=== PATIENT | male | born 1980 | race African-American/Black ===

== ENCOUNTER 2017-12-01 21:50 | Inpatient (IN) | payer OTHER ==
--- NOTE | 2017-12-01 21:50 | HP ---
COWS - Scale Resting Pulse: 1= [place] 81-100 Sweatin= Chills/Flushing Restless Observation: 5= Unable to Sit Still Pupil Size: 1= Pupils >than Normal Bone or Joint Aches: 4=Acute Joint/Muscle Pain Runny Nose/ Eye Tearin= Nasal Congestion GI Upset > 30mins: 1= Stomach Cramp Tremor Observation: 4= Gross Tremor/Twitching Yawning Observation: 0= None Anxiety or Irritability: 4=Extreme Anxiety Goose Flesh Skin: 0=Smooth Skin COWS Score: 22 Admission [facility] - HPI Chief Complaint: C/O WITHDRAWAL SX'S . SEEKING DETOX FOR OPIOID DEPENDENCE Allergies/Adverse Reactions: Allergies Allergy/AdvReac Type Severity Reaction Status Date / Time No Known Allergies Allergy Verified 12/01/17 21:41 History of Present Illness: 37 Y.O MALE WITH LONG HX/O HEROIN DEPENDENCE HERE SEEKING DETOX. CLIENT WAS REFERRED BY [facility] AFTER PRESENTING THERE WITH WITHDRAWAL SX'S. HE REPORTS THIS IS HIS FIRST TIME IN DETOX. REPORTS LONGEST CLEAN TIME 2 YEARS. DENIES ANY LEGAL ISSUES. Exam Limitations: No Limitations - Ebola screening Have you traveled outside of the country in the last 21 days: No Have you had contact with anyone from an Ebola affected area: No Have you been sick,other than usual withdrawal symptoms: No Do you have a fever: No - Review of Systems Constitutional: Chills, Loss of Appetite, Malaise, Night Sweats, Changes in sleep EENT: reports: Nose Congestion Respiratory: reports: No Symptoms reported, Other (ASTHMATIC) Cardiac: reports: No Symptoms Reported GI: reports: Poor Appetite, Poor Fluid Intake, Abdominal cramping : reports: No Symptoms Reported Musculoskeletal: reports: No Symptoms Reported Integumentary: reports: No Symptoms Reported Neuro: reports: Tremors (R/T WITHDRAWAL) Endocrine: reports: No Symptoms Reported Hematology: reports: No Symptoms Reported Psychiatric: reports: Anxious Other Systems: Reviewed and Negative Patient History - Patient Medical History Hx Asthma: Yes Hx Chronic Obstructive Pulmonary Disease (COPD): No Hx Cancer: No Hx Cardiac Disorders: No Hx Congestive Heart Failure: No Hx Hypertension: Yes Hx Hypercholesterolemia: No Hx Pacemaker: No HX Cerebrovascular Accident: No Hx Seizures: No Hx Dementia: No Hx Diabetes: No Hx Gastrointestinal Disorders: No Hx Liver Disease: No Hx Genitourinary Disorders: No Hx Sexually Transmitted Disorders: No Hx Renal Disease (ESRD): No Hx Thyroid Disease: No Hx Human Immunodeficiency Virus (HIV): No Hx Hepatitis C: No Hx Depression: No Hx Suicide Attempt: No Hx Bipolar Disorder: No Hx Schizophrenia: No Other Medical History: DENIES - Patient Surgical History Past Surgical History: No - PPD History Previous Implant?: Yes Documented Results: Negative w/o proof Implanted On Prior [facility] Admission?: No PPD to be Administered?: Yes - Smoking Cessation Smoking history: Never smoked Initiated information on smoking cessation: No - Substance & Tx. History Hx Alcohol Use: No Hx Substance Use: Yes Substance Use Type: Heroin Hx Substance Use Treatment: No - Substances Abused HERION Route: Inhalation Frequency: Daily Amount used: 6 BAGS Age of first use: 29 Date of Last Use: 12/01/17 (6 AM) Family Disease History - Family Disease History Family History: Denies Admission Physical Exam BHS - Physical General Appearance: Yes: Appropriately Dressed, Moderate Distress, Tremorous, Irritable, Anxious HEENTM: Yes: EOMI, Normocephalic, Normal Voice, NIKOLAI, Pharynx Normal, Nasal Congestion, Other (PUPILS DIALATED) Respiratory: Yes: Chest Non-Tender, No Respiratory Distress, No Accessory Muscle Use, Wheezing Neck: Yes: No masses,lesions,Nodules, Supple, Trachea in good position Breast: Yes: Breast Exam Deferred Cardiology: Yes: Regular Rhythm, S1, S2, Tachycardia Abdominal: Yes: Normal Bowel Sounds, Non Tender, Soft Genitourinary: Yes: Within Normal Limits Back: Yes: Normal Inspection Musculoskeletal: Yes: full range of Motion, Gait Steady Extremities: Yes: Normal Capillary Refill, Normal Range of Motion, Non-Tender, Tremors Neurological: Yes: fiction writer II-XII NML intact, Fully Oriented, Alert, Motor Strength 5/5 Integumentary: Yes: Dry, Warm, Other (SCABBED LESIONS TO BACK AND BILAT UPPER EXTREMITIES) Lymphatic: Yes: Within Normal Limits - Diagnostic (1) Opioid dependence with withdrawal Status: Chronic (2) HTN (hypertension) Status: Chronic Qualifiers: Hypertension type: essential hypertension Qualified Code(s): I10 - Essential (primary) hypertension (3) Asthma Status: Chronic Qualifiers: Asthma severity: mild Asthma persistence: intermittent Asthma complication type: unspecified Qualified Code(s): J45.20 - Mild intermittent asthma, uncomplicated Cleared for Admission [facility] - Detox or Rehab [facility] Level of Care: Medically Managed Detox Regimen/Protocol: Methadone Claeared for Rehab Admission: No BHS Breath Alcohol Content Breath Alcohol Content: 0 Vital Signs - Vital Signs Vital Signs Refused: No Temperature: 97.2 F Temperature Source: Oral Pulse Rate: 97 Respiratory Rate: 18 Blood Pressure: 155/85 BP Location: Left Arm Blood Pressure Position: Sitting - Height Height: 6 ft 4 in - Weight Weight: 126.099 kg Weight Measurement Method: Standing Scale Body Mass Index (BMI): 33.8 - Bowel Function Bowel Movement: No Urine Drug Screen - Test Device Lot Number: [id number] Expiration Date: 08/20/19 - Control Is Test Valid: Yes - Results Drug Screen Negative: No Urine Drug Screen Results: OPI-Opiates, BZO-Benzodiazepines (GIVEN IN ER), OXY- Oxycodone (CUT WITH METHADONE)
[2017-12-01 21:59] VITALS: BMI 33.8
[2017-12-01] MEDS ORDERED: MENTHOL/PHENOL 1 EACH UD MM PRN (22:09)
[2017-12-01] MEDS ORDERED: LOPERAMIDE HCL 2 MG CAPSULE PO PRN (22:09)
[2017-12-01] MEDS ORDERED: guaiFENesin/D-METHORPHAN HB 10 ML UNIT-DOSE CUPS PO PRN (22:09)
[2017-12-01] MEDS ORDERED: IBUPROFEN 400 MG TABLET (FP) PO PRN (22:09)
[2017-12-01] MEDS ORDERED: MAGNESIUM CITRATE 300 ML BOTTLE PO PRN (22:09)
[2017-12-01] MEDS ORDERED: ACETAMINOPHEN 325 MG TABLET (FP) PO PRN (22:09)
[2017-12-01] MEDS ORDERED: P-EPHED 60MG/TRIPROLIDI 2.5MG TABLET PO PRN (22:09)
[2017-12-01] MEDS ORDERED: MAGNESIUM HYDROX 2400MG/30ML ORAL SUSPENSION 30 ML CUP PO PRN (22:09)
[2017-12-01] MEDS ORDERED: METHADONE HCL 10 MG TABLET (FOR DETOX USE ONLY) PO ONE ×2 (22:09→23:00)
[2017-12-01] MEDS ORDERED: ALBUTEROL SO4 2.5/IPRATROPIUM 0.5 INH SOL 3 ML VIAL.NEB. NEB PRN (22:12)
[2017-12-01] MEDS: diazePAM 5 MG TABLET PO PRN (23:46)
[2017-12-02] MEDS: ALBUTEROL SO4 18 GM HFA INHALER IH SCH ×7 (00:04→22:02)
[2017-12-02] MEDS: diazePAM 5 MG TABLET PO PRN ×4 (07:47→22:02)
[2017-12-02] MEDS ORDERED: METHADONE HCL 10 MG TABLET (FOR DETOX USE ONLY) PO ONE (10:00)
[2017-12-02 10:05] LABS: HEMATOCRIT 40.4 % (35.4-49); MCH 27.3 pg (25.7-33.7); MCHC 32.3 g/dl (32.0-35.9); MEAN CELL VOLUME 84.6 fl (80-96); MEAN PLT VOLUME 7.8 fl (7.5-11.1); PLATELET COUNT 289 K/MM3 (134-434); RBC 4.77 M/mm3 (4.00-5.60); RDW 13.7 % (11.9-15.9); WHITE BLOOD COUNT 9.5 K/mm3 (4.0-10.0)
[2017-12-02] MEDS: PRENATAL VITAMINS W/ FOLIC ACID TABLET (FP) PO SCH (10:06)
[2017-12-02] MEDS: LISINOPRIL 5 MG TABLET (FP) PO SCH (10:06)
[2017-12-02 10:20] LABS: CHLORIDE 104 mmol/L (98-107); POTASSIUM 3.9 mmol/L (3.5-5.1); SODIUM 141 mmol/L (136-145)
[2017-12-02 10:33] LABS: ALBUMIN 3.7 g/dl (3.4-5.0); ALK PHOS 75 U/L (45-117); ANION GAP 6 (8-16); BILIRUBIN,TOTAL 0.3 mg/dL (0.2-1.0); BLOOD UREA NITROGEN 9 mg/dL (7-18); CALCIUM 8.1 mg/dL (8.5-10.1); CO2 31 mmol/L (21-32); GLUCOSE,RANDOM 87 mg/dL (74-106); SGOT/AST 15 U/L (15-37); SGPT/ALT 16 U/L (12-78); TOT PROT 6.9 g/dl (6.4-8.2)
[2017-12-02] MEDS: BUDESONIDE/FORMETEROL FUMARATE 160/4.5 mcg INHALER IH SCH ×2 (10:40→22:02)
[2017-12-02] MEDS: MAG HYDROX/AL HYDROX/SIMETH 30 ML UNIT-DOSE CUP PO PRN ×2 (11:16→21:33)
--- NOTE | 2017-12-02 11:24 | PN ---
S COWS - Scale Resting Pulse: 1= [place] 81-100 Sweatin= Chills/Flushing Restless Observation: 3= Extraneous Movement Pupil Size: 2= Moderately Dilated Bone or Joint Aches: 4=Acute Joint/Muscle Pain Runny Nose/ Eye Tearin= Nasal Congestion GI Upset > 30mins: 0= None Tremor Observation of Outstretched Hands: 1= Tremor [place], Not Seen Yawning Observation: 1= 1-2x During Session Anxiety or Irritability: 2=Irritable/Anxious Goose Flesh Skin: 0=Smooth Skin COWS Score: 16 BHS Progress Note (SOAP) Subjective: NASAL CONGESTION, ANXIETY,SWEATS,RESTLESS. Objective: 12/02/17 11:25 Vital Signs Temperature 97.1 F L 12/02/17 09:33 Pulse Rate 78 12/02/17 09:33 Respiratory Rate 20 12/02/17 09:33 Blood Pressure 132/83 12/02/17 09:33 O2 Sat by Pulse Oximetry (%) Laboratory Last Values WBC 9.5 K/mm3 (4.0-10.0) 12/02/17 07:00 RBC 4.77 M/mm3 (4.00-5.60) 12/02/17 07:00 Hgb 13.0 GM/dL (11.7-16.9) 12/02/17 07:00 Hct 40.4 % (35.4-49) 12/02/17 07:00 MCV 84.6 fl (80-96) 12/02/17 07:00 MCH 27.3 pg (25.7-33.7) 12/02/17 07:00 MCHC 32.3 g/dl (32.0-35.9) 12/02/17 07:00 RDW 13.7 % (11.9-15.9) 12/02/17 07:00 Plt Count 289 K/MM3 (134-434) 12/02/17 07:00 MPV 7.8 fl (7.5-11.1) 12/02/17 07:00 Sodium 141 mmol/L (136-145) 12/02/17 07:00 Potassium 3.9 mmol/L (3.5-5.1) 12/02/17 07:00 Chloride 104 mmol/L (98-107) 12/02/17 07:00 Carbon Dioxide 31 mmol/L (21-32) 12/02/17 07:00 Anion Gap 6 (8-16) L 12/02/17 07:00 BUN 9 mg/dL (7-18) 12/02/17 07:00 Creatinine 1.0 mg/dL (0.7-1.3) 12/02/17 07:00 Creat Clearance w eGFR > 60 (>60) 12/02/17 07:00 Random Glucose 87 mg/dL (74-106) 12/02/17 07:00 Calcium 8.1 mg/dL (8.5-10.1) L 12/02/17 07:00 Total Bilirubin 0.3 mg/dL (0.2-1.0) 12/02/17 07:00 AST 15 U/L (15-37) 12/02/17 07:00 ALT 16 U/L (12-78) 12/02/17 07:00 Alkaline Phosphatase 75 U/L (45-117) 12/02/17 07:00 Total Protein 6.9 g/dl (6.4-8.2) 12/02/17 07:00 Albumin 3.7 g/dl (3.4-5.0) 12/02/17 07:00 Assessment: 12/02/17 11:25 WITHDRAWAL SX Plan: CONTINUE DETOX
--- NOTE | 2017-12-02 12:14 | CONSULT ---
[facility] Psychiatric Consult - Data Date of interview: 12/02/17 Admission source: [facility] Identifying data: First admission to [facility] for this 37 y/o AA male seeking detox treatment on for heroin dependence. Substance Abuse History: Discussed with patient.Mr Cordova confirms daily use of heroin for past eight years. Smoking history: Never smoked. Initiated information on smoking cessation: No. - Substance & Tx. History. Hx Alcohol Use: No. Hx Substance Use: Yes. Substance Use Type: Heroin. Hx Substance Use Treatment: No. - Substances Abused. HERION. Route: Inhalation. Frequency : Daily. Amount used: 6 BAGS. Age of first use: 29. Date of Last Use: (6 AM) Medical History: Bronchial asthma,obesity and hypertension. Psychiatric History: No reported history of psychiatric hospitalizations.Mr Cordova reports previous psychiatric care,on an outpatient basis,under the supervision of Dr Holman,private psychiatrist based in [facility].Patient is " not sure " about his diagnosis but he believes that " it has something to do my substance abuse." Patient declares that he dropped of treatment " a little over " a year ago.No longer on suboxone maintenance.Denies history of suicide attempts. Physical/Sexual Abuse/Trauma History: Patient denies. Additional Comment: Urine Drug Screen Results: OPI-Opiates, BZO-Benzodiazepines (GIVEN IN ER), OXY-Oxycodone (CUT WITH METHADONE).Noted. Mental Status Exam - Mental Status Exam Alert and Oriented to: Time, Place, Person Cognitive Function: Good Patient Appearance: Well Groomed (scaly skin lesions all over forearms) Mood: Withdrawn Affect: Appropriate, Normal Range Patient Behavior: Fatigued, Appropriate, Cooperative Speech Pattern: Clear, Appropriate Voice Loudness: Normal Thought Process: Intact, Goal Oriented Thought Disorder: Not Present Hallucinations: Denies Suicidal Ideation: Denies Homicidal Ideation: Denies Insight/Judgement: Poor Sleep: Poorly, Difficulty falling asleep Appetite: Good Muscle strength/Tone: Normal Gait/Station: Normal Psychiatric Findings - Problem List ([place] 1, 2,3) (1) Opioid dependence with withdrawal Current Visit: Yes Status: Acute (2) Insomnia Current Visit: Yes Status: Acute - Initial Treatment Plan Initial Treatment Plan: Psychoeducation and support provided in this session.Sleep hygiene discussed.Detoxification protocol in effect.Ambien 10 mg po hs prn.Risk of parasomnias : discussed with the patient.Mr Cordova agrees to this careplan.Observation.
[2017-12-02 14:24] LABS: URINE APPEARANCE CLEAR; URINE BILIRUBIN NEGATIVE (NEGATIVE); URINE BLOOD NEGATIVE (NEGATIVE); URINE COLOR LTYELLOW; URINE GLUCOSE (UA) NEGATIVE (NEGATIVE); URINE KETONE NEGATIVE (NEGATIVE); URINE LEUK ESTERASE NEGATIVE (NEGATIVE); URINE NITRITE NEGATIVE (NEGATIVE); URINE PROTEIN NEGATIVE (NEGATIVE); URINE UROBILINOGEN NEGATIVE mg/dL (0.2-1.0)
[2017-12-02] MEDS: ZOLPIDEM TARTRATE 10 MG TABLET (PARK CARE ONLY) PO PRN (22:02)
[2017-12-02] MEDS: THIAMINE HCL 100 MG TABLET (FP) PO SCH (22:02)
--- NOTE | 2017-12-02 23:33 | EKG ---
Test Reason : Blood Pressure : / mmHG Vent. Rate : 095 BPM Atrial Rate : 095 BPM P-R Int : 164 ms QRS Dur : 104 ms QT Int : 356 ms P-R-T Axes : 078 079 069 degrees QTc Int : 447 ms NORMAL SINUS RHYTHM NONSPECIFIC ST ABNORMALITY ABNORMAL ECG NO PREVIOUS ECGS AVAILABLE Confirmed by ZARIA CHAU, PERLA ([id number]) on 12/02/2017 11:32:52 PM Referred By: Avinash Louis Confirmed By:PERLA ENCISO MD
[2017-12-03] MEDS: diazePAM 5 MG TABLET PO PRN ×4 (02:20→22:04)
[2017-12-03] MEDS: ALBUTEROL SO4 18 GM HFA INHALER IH SCH ×4 (04:35→15:18)
[2017-12-03] MEDS: hydrOXYzine PAMOATE 50 MG CAPSULE (FP) PO PRN (05:57)
[2017-12-03] MEDS ORDERED: METHADONE HCL 5 MG TABLET (FOR DETOX USE ONLY) PO ONE (10:00)
[2017-12-03] MEDS: PRENATAL VITAMINS W/ FOLIC ACID TABLET (FP) PO SCH (10:09)
[2017-12-03] MEDS: BUDESONIDE/FORMETEROL FUMARATE 160/4.5 mcg INHALER IH SCH ×2 (10:09→22:04)
[2017-12-03] MEDS: LISINOPRIL 5 MG TABLET (FP) PO SCH (10:09)
--- NOTE | 2017-12-03 10:38 | PN ---
BHS COWS - Scale Resting Pulse: 1= [place] 81-100 Sweatin= Chills/Flushing Restless Observation: 3= Extraneous Movement Pupil Size: 0= Normal to Room Light Bone or Joint Aches: 4=Acute Joint/Muscle Pain Runny Nose/ Eye Tearin= Nasal Congestion GI Upset > 30mins: 2= Nausea/Diarrhea Tremor Observation of Outstretched Hands: 2= Slight Tremor Visible Yawning Observation: 2= >3x During Session Anxiety or Irritability: 2=Irritable/Anxious Goose Flesh Skin: 0=Smooth Skin COWS Score: 18 BHS Progress Note (SOAP) Subjective: ANXIETY,IRRITABILITY,SWEATS, BACK PAIN, FATIGUE. DENIES SOB Objective: 12/03/17 10:35 Vital Signs Temperature 97.7 F 12/03/17 09:43 Pulse Rate 99 H 12/03/17 09:43 Respiratory Rate 20 12/03/17 09:43 Blood Pressure 136/86 12/03/17 09:43 O2 Sat by Pulse Oximetry (%) Laboratory Last Values WBC 9.5 K/mm3 (4.0-10.0) 12/02/17 07:00 RBC 4.77 M/mm3 (4.00-5.60) 12/02/17 07:00 Hgb 13.0 GM/dL (11.7-16.9) 12/02/17 07:00 Hct 40.4 % (35.4-49) 12/02/17 07:00 MCV 84.6 fl (80-96) 12/02/17 07:00 MCH 27.3 pg (25.7-33.7) 12/02/17 07:00 MCHC 32.3 g/dl (32.0-35.9) 12/02/17 07:00 RDW 13.7 % (11.9-15.9) 12/02/17 07:00 Plt Count 289 K/MM3 (134-434) 12/02/17 07:00 MPV 7.8 fl (7.5-11.1) 12/02/17 07:00 Sodium 141 mmol/L (136-145) 12/02/17 07:00 Potassium 3.9 mmol/L (3.5-5.1) 12/02/17 07:00 Chloride 104 mmol/L (98-107) 12/02/17 07:00 Carbon Dioxide 31 mmol/L (21-32) 12/02/17 07:00 Anion Gap 6 (8-16) L 12/02/17 07:00 BUN 9 mg/dL (7-18) 12/02/17 07:00 Creatinine 1.0 mg/dL (0.7-1.3) 12/02/17 07:00 Creat Clearance w eGFR > 60 (>60) 12/02/17 07:00 Random Glucose 87 mg/dL (74-106) 12/02/17 07:00 Calcium 8.1 mg/dL (8.5-10.1) L 12/02/17 07:00 Total Bilirubin 0.3 mg/dL (0.2-1.0) 12/02/17 07:00 AST 15 U/L (15-37) 12/02/17 07:00 ALT 16 U/L (12-78) 12/02/17 07:00 Alkaline Phosphatase 75 U/L (45-117) 12/02/17 07:00 Total Protein 6.9 g/dl (6.4-8.2) 12/02/17 07:00 Albumin 3.7 g/dl (3.4-5.0) 12/02/17 07:00 Urine Color Ltyellow 12/02/17 11:15 Urine Appearance Clear 12/02/17 11:15 Urine pH 7.0 (5.0-8.0) 12/02/17 11:15 Ur Specific [place] 1.015 (1.001-1.035) 12/02/17 11:15 Urine Protein Negative (NEGATIVE) 12/02/17 11:15 Urine Glucose (UA) Negative (NEGATIVE) 12/02/17 11:15 Urine Ketones Negative (NEGATIVE) 12/02/17 11:15 Urine Blood Negative (NEGATIVE) 12/02/17 11:15 Urine Nitrite Negative (NEGATIVE) 12/02/17 11:15 Urine Bilirubin Negative (NEGATIVE) 12/02/17 11:15 Urine Urobilinogen Negative mg/dL (0.2-1.0) 12/02/17 11:15 Ur Leukocyte Esterase Negative (NEGATIVE) 12/02/17 11:15 RPR Titer Nonreactive (NONREACTIVE) 12/02/17 07:00 Assessment: 12/03/17 10:36 WITHDRAWAL SX Plan: CONTINUE DETOX [facility] DIRECTED
[2017-12-03] MEDS: CYCLOBENZAPRINE HCL 10 MG TABLET (FP) PO SCH ×2 (13:59→22:04)
[2017-12-03] MEDS: MAG HYDROX/AL HYDROX/SIMETH 30 ML UNIT-DOSE CUP PO PRN (15:19)
[2017-12-03] MEDS ORDERED: ALBUTEROL SO4 18 GM HFA INHALER IH PRN (15:38)
[2017-12-03] MEDS: THIAMINE HCL 100 MG TABLET (FP) PO SCH (22:03)
[2017-12-03] MEDS: ZOLPIDEM TARTRATE 10 MG TABLET (PARK CARE ONLY) PO PRN (22:04)
[2017-12-04] MEDS: diazePAM 5 MG TABLET PO PRN ×2 (04:26→08:55)
[2017-12-04] MEDS: CYCLOBENZAPRINE HCL 10 MG TABLET (FP) PO SCH ×3 (05:30→22:06)
[2017-12-04] MEDS: MAG HYDROX/AL HYDROX/SIMETH 30 ML UNIT-DOSE CUP PO PRN (08:55)
[2017-12-04] MEDS ORDERED: METHADONE HCL 5 MG TABLET (FOR DETOX USE ONLY) PO ONE (10:00)
[2017-12-04] MEDS: PRENATAL VITAMINS W/ FOLIC ACID TABLET (FP) PO SCH (10:10)
[2017-12-04] MEDS: LISINOPRIL 5 MG TABLET (FP) PO SCH (10:11)
[2017-12-04] MEDS: BUDESONIDE/FORMETEROL FUMARATE 160/4.5 mcg INHALER IH SCH ×2 (10:11→22:07)
--- NOTE | 2017-12-04 10:15 | PN ---
S Progress Note (SOAP) Subjective: ANXIETY,IRRITABILITY,UPSET STOMACH-INDIGESTION, [place]LANTA GIVEN. Objective: 12/04/17 10:14 Laboratory Last Values WBC 9.5 K/mm3 (4.0-10.0) 12/02/17 07:00 RBC 4.77 M/mm3 (4.00-5.60) 12/02/17 07:00 Hgb 13.0 GM/dL (11.7-16.9) 12/02/17 07:00 Hct 40.4 % (35.4-49) 12/02/17 07:00 MCV 84.6 fl (80-96) 12/02/17 07:00 MCH 27.3 pg (25.7-33.7) 12/02/17 07:00 MCHC 32.3 g/dl (32.0-35.9) 12/02/17 07:00 RDW 13.7 % (11.9-15.9) 12/02/17 07:00 Plt Count 289 K/MM3 (134-434) 12/02/17 07:00 MPV 7.8 fl (7.5-11.1) 12/02/17 07:00 Sodium 141 mmol/L (136-145) 12/02/17 07:00 Potassium 3.9 mmol/L (3.5-5.1) 12/02/17 07:00 Chloride 104 mmol/L (98-107) 12/02/17 07:00 Carbon Dioxide 31 mmol/L (21-32) 12/02/17 07:00 Anion Gap 6 (8-16) L 12/02/17 07:00 BUN 9 mg/dL (7-18) 12/02/17 07:00 Creatinine 1.0 mg/dL (0.7-1.3) 12/02/17 07:00 Creat Clearance w eGFR > 60 (>60) 12/02/17 07:00 Random Glucose 87 mg/dL (74-106) 12/02/17 07:00 Calcium 8.1 mg/dL (8.5-10.1) L 12/02/17 07:00 Total Bilirubin 0.3 mg/dL (0.2-1.0) 12/02/17 07:00 AST 15 U/L (15-37) 12/02/17 07:00 ALT 16 U/L (12-78) 12/02/17 07:00 Alkaline Phosphatase 75 U/L (45-117) 12/02/17 07:00 Total Protein 6.9 g/dl (6.4-8.2) 12/02/17 07:00 Albumin 3.7 g/dl (3.4-5.0) 12/02/17 07:00 Urine Color Ltyellow 12/02/17 11:15 Urine Appearance Clear 12/02/17 11:15 Urine pH 7.0 (5.0-8.0) 12/02/17 11:15 Ur Specific [place] 1.015 (1.001-1.035) 12/02/17 11:15 Urine Protein Negative (NEGATIVE) 12/02/17 11:15 Urine Glucose (UA) Negative (NEGATIVE) 12/02/17 11:15 Urine Ketones Negative (NEGATIVE) 12/02/17 11:15 Urine Blood Negative (NEGATIVE) 12/02/17 11:15 Urine Nitrite Negative (NEGATIVE) 12/02/17 11:15 Urine Bilirubin Negative (NEGATIVE) 12/02/17 11:15 Urine Urobilinogen Negative mg/dL (0.2-1.0) 12/02/17 11:15 Ur Leukocyte Esterase Negative (NEGATIVE) 12/02/17 11:15 RPR Titer Nonreactive (NONREACTIVE) 12/02/17 07:00 Vital Signs 12/04/17 12/04/17 12/04/17 03:28 05:57 09:22 Temperature 98.3 F 97.3 F L Pulse Rate 128 H 122 H Respiratory 18 18 20 Rate Blood Pressure 140/91 130/87 Assessment: 12/04/17 10:14 WITHDRAWAL SX Plan: CONTINUE DETOX
[2017-12-04] MEDS: LORATADINE 10 MG TABLET PO SCH (13:24)
[2017-12-04] MEDS: THIAMINE HCL 100 MG TABLET (FP) PO SCH (22:06)
[2017-12-04] MEDS: ZOLPIDEM TARTRATE 10 MG TABLET (PARK CARE ONLY) PO PRN (22:06)
[2017-12-04] MEDS: hydrOXYzine PAMOATE 50 MG CAPSULE (FP) PO PRN (23:14)
[2017-12-05] MEDS: CYCLOBENZAPRINE HCL 10 MG TABLET (FP) PO SCH ×3 (05:31→22:08)
[2017-12-05] MEDS: hydrOXYzine PAMOATE 50 MG CAPSULE (FP) PO PRN (06:29)
[2017-12-05] MEDS ORDERED: METHADONE HCL 10 MG TABLET (FOR DETOX USE ONLY) PO ONE (10:00)
[2017-12-05] MEDS: LISINOPRIL 5 MG TABLET (FP) PO SCH (10:04)
[2017-12-05] MEDS: BUDESONIDE/FORMETEROL FUMARATE 160/4.5 mcg INHALER IH SCH ×2 (10:04→22:08)
[2017-12-05] MEDS: LORATADINE 10 MG TABLET PO SCH (10:04)
[2017-12-05] MEDS: PRENATAL VITAMINS W/ FOLIC ACID TABLET (FP) PO SCH (10:04)
--- NOTE | 2017-12-05 10:11 | PN ---
BHS Progress Note (SOAP) Subjective: C/O MUSCLE SPASMS BODY ACHES, ANXIETY. Objective: 12/05/17 10:11 Vital Signs Temperature 97.3 F L 12/05/17 09:23 Pulse Rate 109 H 12/05/17 09:23 Respiratory Rate 20 12/05/17 09:23 Blood Pressure 137/89 12/05/17 09:23 O2 Sat by Pulse Oximetry (%) Laboratory Last Values WBC 9.5 K/mm3 (4.0-10.0) 12/02/17 07:00 RBC 4.77 M/mm3 (4.00-5.60) 12/02/17 07:00 Hgb 13.0 GM/dL (11.7-16.9) 12/02/17 07:00 Hct 40.4 % (35.4-49) 12/02/17 07:00 MCV 84.6 fl (80-96) 12/02/17 07:00 MCH 27.3 pg (25.7-33.7) 12/02/17 07:00 MCHC 32.3 g/dl (32.0-35.9) 12/02/17 07:00 RDW 13.7 % (11.9-15.9) 12/02/17 07:00 Plt Count 289 K/MM3 (134-434) 12/02/17 07:00 MPV 7.8 fl (7.5-11.1) 12/02/17 07:00 Sodium 141 mmol/L (136-145) 12/02/17 07:00 Potassium 3.9 mmol/L (3.5-5.1) 12/02/17 07:00 Chloride 104 mmol/L (98-107) 12/02/17 07:00 Carbon Dioxide 31 mmol/L (21-32) 12/02/17 07:00 Anion Gap 6 (8-16) L 12/02/17 07:00 BUN 9 mg/dL (7-18) 12/02/17 07:00 Creatinine 1.0 mg/dL (0.7-1.3) 12/02/17 07:00 Creat Clearance w eGFR > 60 (>60) 12/02/17 07:00 Random Glucose 87 mg/dL (74-106) 12/02/17 07:00 Calcium 8.1 mg/dL (8.5-10.1) L 12/02/17 07:00 Total Bilirubin 0.3 mg/dL (0.2-1.0) 12/02/17 07:00 AST 15 U/L (15-37) 12/02/17 07:00 ALT 16 U/L (12-78) 12/02/17 07:00 Alkaline Phosphatase 75 U/L (45-117) 12/02/17 07:00 Total Protein 6.9 g/dl (6.4-8.2) 12/02/17 07:00 Albumin 3.7 g/dl (3.4-5.0) 12/02/17 07:00 Urine Color Ltyellow 12/02/17 11:15 Urine Appearance Clear 12/02/17 11:15 Urine pH 7.0 (5.0-8.0) 12/02/17 11:15 Ur Specific [place] 1.015 (1.001-1.035) 12/02/17 11:15 Urine Protein Negative (NEGATIVE) 12/02/17 11:15 Urine Glucose (UA) Negative (NEGATIVE) 12/02/17 11:15 Urine Ketones Negative (NEGATIVE) 12/02/17 11:15 Urine Blood Negative (NEGATIVE) 12/02/17 11:15 Urine Nitrite Negative (NEGATIVE) 12/02/17 11:15 Urine Bilirubin Negative (NEGATIVE) 12/02/17 11:15 Urine Urobilinogen Negative mg/dL (0.2-1.0) 12/02/17 11:15 Ur Leukocyte Esterase Negative (NEGATIVE) 12/02/17 11:15 RPR Titer Nonreactive (NONREACTIVE) 12/02/17 07:00 Assessment: 12/05/17 10:11 WITHDRAWAL SX Plan: CONTINUE DETOX [facility] DIRECTED
[2017-12-05] MEDS: ZOLPIDEM TARTRATE 10 MG TABLET (PARK CARE ONLY) PO PRN (21:59)
[2017-12-05] MEDS: THIAMINE HCL 100 MG TABLET (FP) PO SCH (22:07)
[2017-12-06] MEDS: hydrOXYzine PAMOATE 50 MG CAPSULE (FP) PO PRN (02:22)
[2017-12-06] MEDS: CYCLOBENZAPRINE HCL 10 MG TABLET (FP) PO SCH (05:03)
[2017-12-06] MEDS ORDERED: METHADONE HCL 5 MG TABLET (FOR DETOX USE ONLY) PO ONE (06:00)
[2017-12-06 06:19] VITALS: TEMP 97.4
--- NOTE | 2017-12-06 08:28 | DS ---
[facility] Detox Discharge Summary Admission Date: 12/01/17 Discharge Date: 12/06/17 - History Present History: Opioid Dependence Additional Comments: DETOX COMPLETED. ALERT O X 3. NAD. PT WILL FOLLOW UP WITH HIS PMD, DR. LAURA FLORES AT [address] FOR MEDICAL MANAGEMENT OF COMORBID CONDITIONS. Pertinent Past History: SEE DX BELOW - Physical Exam Results Vital Signs: Vital Signs Temperature 97.4 F L 12/06/17 06:18 Pulse Rate 99 H 12/06/17 06:18 Respiratory Rate 19 12/06/17 06:18 Blood Pressure 112/39 12/06/17 06:18 O2 Sat by Pulse Oximetry (%) Pertinent Admission Physical Exam Findings: WITHDRAWAL SX Laboratory Last Values WBC 9.5 K/mm3 (4.0-10.0) 12/02/17 07:00 RBC 4.77 M/mm3 (4.00-5.60) 12/02/17 07:00 Hgb 13.0 GM/dL (11.7-16.9) 12/02/17 07:00 Hct 40.4 % (35.4-49) 12/02/17 07:00 MCV 84.6 fl (80-96) 12/02/17 07:00 MCH 27.3 pg (25.7-33.7) 12/02/17 07:00 MCHC 32.3 g/dl (32.0-35.9) 12/02/17 07:00 RDW 13.7 % (11.9-15.9) 12/02/17 07:00 Plt Count 289 K/MM3 (134-434) 12/02/17 07:00 MPV 7.8 fl (7.5-11.1) 12/02/17 07:00 Sodium 141 mmol/L (136-145) 12/02/17 07:00 Potassium 3.9 mmol/L (3.5-5.1) 12/02/17 07:00 Chloride 104 mmol/L (98-107) 12/02/17 07:00 Carbon Dioxide 31 mmol/L (21-32) 12/02/17 07:00 Anion Gap 6 (8-16) L 12/02/17 07:00 BUN 9 mg/dL (7-18) 12/02/17 07:00 Creatinine 1.0 mg/dL (0.7-1.3) 12/02/17 07:00 Creat Clearance w eGFR > 60 (>60) 12/02/17 07:00 Random Glucose 87 mg/dL (74-106) 12/02/17 07:00 Calcium 8.1 mg/dL (8.5-10.1) L 12/02/17 07:00 Total Bilirubin 0.3 mg/dL (0.2-1.0) 12/02/17 07:00 AST 15 U/L (15-37) 12/02/17 07:00 ALT 16 U/L (12-78) 12/02/17 07:00 Alkaline Phosphatase 75 U/L (45-117) 12/02/17 07:00 Total Protein 6.9 g/dl (6.4-8.2) 12/02/17 07:00 Albumin 3.7 g/dl (3.4-5.0) 12/02/17 07:00 Urine Color Ltyellow 12/02/17 11:15 Urine Appearance Clear 12/02/17 11:15 Urine pH 7.0 (5.0-8.0) 12/02/17 11:15 Ur Specific [place] 1.015 (1.001-1.035) 12/02/17 11:15 Urine Protein Negative (NEGATIVE) 12/02/17 11:15 Urine Glucose (UA) Negative (NEGATIVE) 12/02/17 11:15 Urine Ketones Negative (NEGATIVE) 12/02/17 11:15 Urine Blood Negative (NEGATIVE) 12/02/17 11:15 Urine Nitrite Negative (NEGATIVE) 12/02/17 11:15 Urine Bilirubin Negative (NEGATIVE) 12/02/17 11:15 Urine Urobilinogen Negative mg/dL (0.2-1.0) 12/02/17 11:15 Ur Leukocyte Esterase Negative (NEGATIVE) 12/02/17 11:15 RPR Titer Nonreactive (NONREACTIVE) 12/02/17 07:00 - Treatment Hospital Course: Detox Protocol Followed, Detoxed Safely, Responded well, Discharged Condition Good, Rehab Referral Accepted Patient has Accepted a Rehab Referral to: [facility] - Medication Discharge Medications: Ambulatory Orders Albuterol Sulfate Inhaler - [Ventolin HFA Inhaler -] 2 inh PO Q4H 12/01/17 Lisinopril 5 mg PO DAILY 12/01/17 Salmeterol/Fluticasone [Advair 500Mcg/50Mcg -] 1 inh IH BID 12/01/17 hydrOXYzine PAMOATE [Vistaril -] 25 mg PO DAILY 12/01/17 - Diagnosis (1) Asthma Status: Chronic Qualifiers: Asthma severity: mild Asthma persistence: intermittent Asthma complication type: unspecified Qualified Code(s): J45.20 - Mild intermittent asthma, uncomplicated (2) HTN (hypertension) Status: Chronic Qualifiers: Hypertension type: essential hypertension Qualified Code(s): I10 - Essential (primary) hypertension (3) Opioid dependence with withdrawal Status: Acute (4) Back pain Status: Chronic Qualifiers: Back pain location: low back pain - AMA Did Patient Leave Against Medical Advice: No
[2017-12-06 09:28] VITALS: BP 130/83; PULSE 111
== END 2017-12-06 09:32 | disposition home or self-care (01) | DRG 199 ==
LOC: YASAS 21:50 → Y3N 21:51
PROVIDERS: ADMIT Internal Medicine; ATTEND Internal Medicine
PROC: HZ2ZZZZ Detoxification Services for Substance Abuse Treatment (ICD-10-PCS; principal; 2017-12-01)
DX: I10 Essential (primary) hypertension (principal); J45.20 Mild intermittent asthma, uncomplicated; M54.5 Low back pain
CPT/HCPCS: 36415; 80053; 81003; 85027; 86593; 93005; 93010; 94640